=== PATIENT | female | born 1990 | race Hispanic/Latino ===

== ENCOUNTER 2016-10-03 18:41 | Emergency (ER) | payer MEDICAID ==
[~2016-10-03] VITALS: Ht 165.1 cm; Wt 84.0 kg
[~2016-10-03 18:41] MED LIST: ALBU8.5H2 INHALATION; Ascorbic Acid PO; DOCU-41 PO; FERR-74 PO; HYDR-4003 PO; IBUP800T28 PO; PREN-148 PO
[2016-10-03 18:54] VITALS: BP 125/83; PULSE 97; RESP 18; O2SAT 100
[2016-10-03 19:32] LABS: BASOPHILS % (AUTO) 0.1 % (0-3); EOSINOPHILS % (AUTO) 1.5 % (0-5); MONOCYTES % (AUTO) 4.8 % (4-12); Mean Corpuscular Hemoglobin 30.5 pg (27.0-35.0); Mean Corpuscular Volume 87.1 fL (81-100); NEUTROPHILS % (AUTO) 74.6 % (40-74); Platelet Count 274 bil/L (150-400)
--- NOTE | 2016-10-03 20:11 | ED.REPORT ---
HPI-Abd Pain F Under 40 Date of Service Oct 03, 2016 ED Provider: Margaret Goncalves DO Pt is a otherwise healthy 26 year old female who presents to the ED complaining of abdominal pain onset 3 days ago. She c/o associated lower extremity cramping. She denies vaginal bleeding. Pt reports that she presented to urgent care and was diagnosed with at 7 weeks, and she has been "taking Plan B". Nursing Notes Stated Complaint: ABDOMINAL PAIN + PREG Chief Complaint: Female Abdominal Pain Nursing Notes Reviewed: Yes Allergies: Coded Allergies: aspirin (Verified Allergy, Intermediate, rash, 04/28/15) Scheduled ([Ascorbic Acid]) 500 MG TABLET 500 MG PO BIDWM Albuterol HFA (Proair HFA) 8.5 Gm Hfa.aer.ad 2 PUFFS INHALATION Q4H Docusate Sodium (Colace) 100 Mg Capsule 100 MG PO BID Ferrous Sulfate (Feosol) 325 Mg Tablet 325 MG PO BIDWM Vit No.124/Iron/FA ( Vitamin Tablet) 27 Mg Iron-800 Mcg Tablet 1 EACH PO DAILY Scheduled PRN Hydrocodone-Acetaminophen 5-325 mg (Hydrocodone-Acetaminophen 5-325 mg) 1 Each Tablet 1-2 TABLET PO Q4H PRN PRN For Pain Ibuprofen (Ibuprofen) 800 Mg Tablet 800 MG PO TID PRN PRN For Pain General Time Seen by MD: 20:10 Chief Complaint Abdominal pain Hx Obtained From: Patient Arrived By: Walk-in Sudden in Onset?: No Onset Occurred: 3 days ago Symptom Duration: Since onset Location: : Diffuse Quality: Painful Severity: Current: Moderate Severity: Maximum: Moderate Recent Healthcare: Recent doctor visit Similar Sx Previous: No Past Medical History Past Medical History Asthma - 10/03/16 Past Surgical History denies Smoking History Never Smoker Social History Alcohol Use: "Social" Drug Use: Denies drug use Other Social History: Good social support Ambulatory Status Independent Review of Systems Constitutional: Denies: Fever Respiratory: Denies: Non-productive cough GI: Reports: Abdominal pain Female: Denies: Vaginal bleeding - abnl Musculoskeletal: Reports: Extremity pain Complete sys rev & neg: except as marked. Physical Exam Initial Vital Signs Vital Signs (First) Date Time Temp Pulse Resp B/P Pulse Ox O2 Delivery O2 Flow Rate FiO2 10/03/16 18:54 36.8 97 18 125/83 100 Room Air Initial VS: Reviewed Head / Eyes: Atraumatic, Normocephalic Neck: Supple, Full range of motion Extremities: Vascular intact, Neuro intact Skin: Warm, Dry, No cyanosis Neurologic: Alert, Oriented, Nonfocal Psychiatric: Mood/affect normal, Behavior normal General/Constitutional: Awake, Alert, Cooperative, Not toxic appearing Respiratory / Chest: Atraumatic, Breath sounds NL, Breath sounds = bilat Cardiovascular: Heart rate NL, Regular rhythm, Heart sounds NL Abdomen: Atraumatic, Soft, Non-tender Back: Atraumatic, Full range of motion Interpretation & Diagnostics Lab Results Interpretation Result Diagram: 10/03/16192410/03/16 192 Test 10/03/16 19:25 10/03/16 20:00 10/03/16 20:32 White Blood Count 10.4th/mm3 (3.8-10.1) Red Blood Count 4.49mil/mm3 (3.90-5.20) Hemoglobin 13.7g/dL (12.0-15.6) Hematocrit 39.1% (35.0-46.0) Mean Corpuscular Volume 87.1fL (81-100) Mean Corpuscular Hemoglobin 30.5pg (27.0-35.0) Mean Corpuscular Hemoglobin Concent 35.0% (32.0-37.0) Red Cell Distribution Width 13.2% (12.3-15.4) Platelet Count 274bil/L (150-400) Neutrophils (%) (Auto) 74.6% (40-74) Lymphocytes (%) (Auto) 18.8% (14-46) Monocytes (%) (Auto) 4.8% (4-12) Eosinophils (%) (Auto) 1.5% (0-5) Basophils (%) (Auto) 0.1% (0-3) Sodium Level 136mEq/L (134-144) Potassium Level 4.0mEq/L (3.5-5.2) Chloride Level 99mEq/L (97-108) Carbon Dioxide Level 23mmol/L (18-29) Blood Urea Nitrogen 6mg/dL (6-20) Creatinine 0.49mg/dL (0.57-1.00) Estimat Glomerular Filtration Rate 219mL/min (>59) Glucose Level 106mg/dL (60-99) Calcium Level 9.5mg/dL (8.5-10.1) Total Bilirubin 0.3mg/dL (0.0-1.2) Aspartate Amino Transf (AST/SGOT) 16U/L (0-50) Alanine Aminotransferase (ALT/SGPT) 16U/L (0-32) Alkaline Phosphatase 92U/L (25-150) Total Protein 7.3g/dL (6.4-8.4) Albumin 4.3g/dL (3.4-5.0) HCG Beta Subunit [id number]/mL Hold Zuniga Top Tube Received (Received) Hold Urine Received (Received) Urine Color Yellow (YELLOW) Urine Appearance Hazy (CLEAR,HAZY) Urine pH 5.5 (5.0-8.0) Urine Specific [place] <1.005 (1.003-1.035) Urine Protein Negativemg/dL (NEG,TRACE) Urine Glucose (UA) Negativemg/dL (NEGATIVE) Urine Ketones Negativemg/dL (NEGATIVE) Urine Occult Blood Negative (NEGATIVE) Urine Nitrite Negative (NEGATIVE) Urine Bilirubin Negative (NEGATIVE) Urine Urobilinogen Normalmg/dL (NORMAL) Urine Leukocyte Esterase Large (NEGATIVE) Urine RBC 0-2/hpf (0-2) Urine WBC 11-50/hpf (0-5) Urine Epithelial Cells Many/hpf (NONE-MOD) Urine Crystals None seen (NONE SEEN) Urine Bacteria Moderate/hpf (NONE-FEW) Urine Hyaline Casts None/lpf (NONE) Urine Granular Casts None seen (NONE SEEN) Urine Waxy Casts None seen (NONE SEEN) Urine Red Blood Cell Casts None seen (NONE SEEN) Urine White Blood Cell Casts None seen (NONE SEEN) Urine Mucus None seen (None Seen) Urine Trichomonas None seen (NONE SEEN) Urine Yeast None (NONE SEEN) Urinalysis Comment None Urine Culture Reflexed Indicated US Abdominal Aorta Viable uterine . Heart beat 106 bpm. No etopic . No free fluid. Right adnexal cystic lesion, good blood flow. Exam performed by Shaun. Re-Eval/Medical Decision Med Decision/Clinical Course Viable . Ectopic most likely ruled out. Ovarian cyst on the right where she is tender. Good blood supply. No hemoperitoneum. Rh+. Reassuring labs. Evidence of UTI. I will place her on Keflex 3 times a day for 7 days. Outpatient OB follow-up. Routine care. Source of Hx: Old records Re-Evaluation/Progress : Time of Eval: 21:46 )( Re-Eval Abdomen: Soft Re-Evaluation/Progress Note: Pt rechecked. Informed pt of plan for discharge. Pt understands and agrees with plan for discharge. F/U instructions and RTER warnings given. All questions addressed. Counseled Regarding: Diagnosis, Lab results, Need for follow-up, When/why to return to ED Discharge & Departure Primary Impression: Abdominal pain Abdominal location: unspecified location Qualified Code: R10.9 - Unspecified abdominal pain Additional Impressions: Ovarian cyst Laterality: unspecified laterality Qualified Code: N83.209 - Unspecified ovarian cyst, unspecified side Weeks of gestation: unspecified Qualified Code: Z33.1 - state, incidental UTI (urinary tract infection) Urinary tract infection type: site unspecified Hematuria presence: without hematuria Qualified Code: N39.0 - Urinary tract infection, site not specified Disposition: Home Discharge Condition All VS Reviewed: Yes Condition: Stable Patient Instructions: Abdominal Pain (ED), Ovarian Cyst (ED), (ED), Urinary Tract Infection in (ED) Additional Instructions: The ultrasound shows that you have a viable intrauterine as well as a right-sided ovarian cyst. During the ultrasound you seemed to be tender over this cyst. No signs of torsion to the cyst. You do have a bladder infection. You are Rh is positive. Take Keflex 3 times daily for 7 days. Call the referral cosmetic surgeon for follow-up. Return if any problems or any new or worrisome symptoms. Start taking a multivitamin for tested. Acetaminophen as directed for pain. Referrals: NOPCP (PCP) Caden Oliveira MD (Family) Husam Proctor MD Attestation Portions of this note were transcribed by Shahla Joseph. I, Dr. Robles personally performed the history, physical exam and medical decision-making; I reviewed and confirmed the accuracy of the information in the transcribed note. Signed by: Carol Hill, 10/03/16 and 21:50. copies to: Caden Oliveira MD; Husam Proctor MD, Todd P DO Oct 03, 2016 20:11 Shahla Marie Oct 03, 2016 20:51
[2016-10-03 21:11] LABS: APPEARANCE,URINE HAZY (CLEAR,HAZY); COLOR,URINE YELLOW (YELLOW); OCCULT BLOOD,URINE NEGATIVE (NEGATIVE); PH,URINE 5.5 (5.0-8.0)
[2016-10-03 21:12] LABS: UROBILINOGEN,URINE NORMAL (NORMAL)
[2016-10-03 21:54] VITALS: BP 107/74; PULSE 78; RESP 20; O2SAT 97
--- NOTE | 2016-10-03 21:55 | DRSVH ---
PROCEDURE: US OB<14 WKS+OB TRANSVAG INDICATIONS: and pelvic pain OUTSIDE/PRIOR DATING DATA: Last menstrual period (LMP): 08/25/2016. LMP-based estimated date of delivery (DHARMESH): 06/01/2017. First dating scan (date and location): This exam. Estimated date of delivery (DHARMESH) from first dating scan: 05/27/2017. TECHNIQUE: Real-time scanning was performed of the fetus and maternal pelvic organs, with image documentation. Endovaginal scanning was also performed to better visualize the fetus and maternal ovaries. COMPARISON: [facility] Ultrasound, US, US OB<14 WKS+OB TRANSVAG, 03/07/2015, 14:32. Non e. FINDINGS: Embryo: A single living intrauterine gestation is present. heart tone is present. OB-RN CLINICAL REVIEW Ultrasound Procedure Report Early Gestation [employer] Mean Gestational Sac Diameter: - Gestational Age (MGSD): - [place] Rump Length: 4.90 mm Gestational Age (CRL): 6 weeks, 2 days Summary Fetus Summary Heart Rate: 105 bpm Comments: A normal yolk sac is noted. No perigestational bleeds. Measurement variability in dating: +/- 4 weeks by LMP, +/- 7 days by mean sac diameter (use before 6 weeks gestation if crown-rump length not able to be measured), +/- 5 days by crown-rump length (up t o 8 weeks 6 days gestation), +/- 7 days by crown-rump length (from 9 weeks to 13 weeks 6 days gestati on). Maternal organs: Right ovary measures 4.3 x 3.0 x 2.4 cm. [place] a complex cyst in the right ovary measuring 1.8 cm, probably a corpus luteal cyst. Left ovary is not visualized. Limited images throug h the kidneys demonstrate no hydronephrosis. IMPRESSION: 1. A single living intrauterine gestation. The estimated gestational age is 6 weeks 2 days based on miranda ness ultrasound. Ultrasound DHARMESH 05/27/2017. 2. ? Corpu luteal cyst in right ovary. Left ovary is not visualized. Dictated by: Urmila Mejia M.D. on 10/03/2016 at 21:48 Transcribed by: JAIDA on 10/03/2016 at 21:54 Approved by: Urmila Mejia M.D. on 10/03/2016 at 22:33
== END 2016-10-03 21:55 | disposition home or self-care (01) ==
LOC: SED 18:41
DX: O23.41 Unspecified infection of urinary tract in pregnancy, first trimester (principal); N83.209 Unspecified ovarian cyst, unspecified side; Z3A.01 Less than 8 weeks gestation of pregnancy; Z79.82 Long term (current) use of aspirin

== ENCOUNTER 2016-11-18 13:38 | Emergency (ER) | payer MEDICAID ==
[~2016-11-18] VITALS: Ht 165.1 cm; Wt 86.4 kg
[2016-11-18 13:50] VITALS: BP 113/72; PULSE 90; RESP 16; O2SAT 98
--- NOTE | 2016-11-18 15:10 | ED.REPORT ---
HPI- Female Date of Service Nov 18, 2016 ED Provider: Mona Rodríguez MD The pt is a 26 y/o 3 months female () with a hx of asthma who presents to the ED complaining of numbness in her right inguinal region that radiates to her back, onset last night. These sx came on after she had a strong , fast, and sharp contraction last night. She also reports back muscle tightness for the last two weeks. She has been using hot and ice packs, which seems to improve her sx. The pt denies vaginal bleeding and dysuria. Nursing Notes Stated Complaint: ABD/BACK PAIN,3 MONTHS PG Chief Complaint: General Complaint Nursing Notes Reviewed: Yes Allergies: Coded Allergies: aspirin (Verified Allergy, Intermediate, rash, 04/28/15) Scheduled ([Ascorbic Acid]) 500 MG TABLET 500 MG PO BIDWM Albuterol HFA (Proair HFA) 8.5 Gm Hfa.aer.ad 2 PUFFS INHALATION Q4H Docusate Sodium (Colace) 100 Mg Capsule 100 MG PO BID Ferrous Sulfate (Feosol) 325 Mg Tablet 325 MG PO BIDWM Vit No.124/Iron/FA ( Vitamin Tablet) 27 Mg Iron-800 Mcg Tablet 1 EACH PO DAILY Scheduled PRN Hydrocodone-Acetaminophen 5-325 mg (Hydrocodone-Acetaminophen 5-325 mg) 1 Each Tablet 1-2 TABLET PO Q4H PRN PRN For Pain Ibuprofen (Ibuprofen) 800 Mg Tablet 800 MG PO TID PRN PRN For Pain oxyCODONE-Acetaminophen 5-325 mg (oxyCODONE-Acetaminophen 5-325 mg) 1 Each Tablet 1 TAB PO Q6H PRN PRN For Pain General Time Seen by MD: 14:50 Chief Complaint Inguinal pain right Hx Obtained From: Patient Arrived By: Walk-in Sudden in Onset?: Yes Onset Occurred: Yesterday Symptom Duration: Since onset Location: : Back Severity: Current: Mild Severity: Maximum: Mild Recent Healthcare: Recent doctor visit Similar Sx Previous: No Past Medical History Past Medical History Asthma - 10/03/16 Past Surgical History denies Smoking History Never Smoker Social History Alcohol Use: "Social" Drug Use: Denies drug use Other Social History: Good social support Ambulatory Status Independent Review of Systems Reports: back muscle tightness Female: Reports: , Denies: Dysuria, Vaginal bleeding - abnl Neurologic: Reports: Numbness (right inguinal region radiating to the back) Complete sys rev & neg: except as marked. Physical Exam Initial Vital Signs Vital Signs (First) Date Time Temp Pulse Resp B/P Pulse Ox O2 Delivery O2 Flow Rate FiO2 11/18/16 13:50 36.2 90 16 113/72 98 Room Air Initial VS: Reviewed Head / Eyes: Atraumatic, Normocephalic, PERRL Neck: Supple, Non-tender, Full range of motion Extremities: Vascular intact, Neuro intact, No swelling, No tenderness Female Genitourinary: Exam deferred General/Constitutional: Awake, Alert, Cooperative Respiratory / Chest: Atraumatic, Breath sounds NL, Breath sounds = bilat, No rales, No rhonchi, No wheezing Cardiovascular: Heart rate NL, Regular rhythm, Heart sounds NL, No gallop, No murmurs, No rubs Abdomen: Atraumatic, Soft, Non-tender, No guarding, No rebound, BS normoactive Back: Atraumatic, Inspection NL, Full range of motion Paraspinus muscle spasms Skin: Atraumatic, Color NL, No rash, Warm, Dry, Intact Neurologic: Oriented X3, Speech NL, No motor deficits Significant decreased cold sensation on the right side, just under the right breast to the right inguinal crest. Interpretation & Diagnostics Interpretation & Diagnostics: urine dip: +Leuk/tr pr/+ glucose/+ketones/- blood sent for culture PROCEDURE: US OB<14 WKS IMPRESSION: 1. Single living intrauterine gestation, with ultrasound derived estimated gestational age of 13 weeks 3 days, +/-7 days. As such, ultrasound derived dating is discordant from dating derived from the last menstrual period ( presumably from incorrect dates). 2. No sonographic explanation for abdominal pain. Dictated by: Antony Braxton M.D. on 11/18/2016 at 16:15 Approved by: Antony Braxton M.D. on 11/18/2016 at 16:20 Lab Results Interpretation Result Diagram: 11/18/16 1500 11/18/16 1500 Test 11/18/16 15:00 White Blood Count 8.2th/mm3 (3.8-10.1) Red Blood Count 4.24mil/mm3 (3.90-5.20) Hemoglobin 12.9g/dL (12.0-15.6) Hematocrit 36.9% (35.0-46.0) Mean Corpuscular Volume 87.0fL (81-100) Mean Corpuscular Hemoglobin 30.4pg (27.0-35.0) Mean Corpuscular Hemoglobin Concent 35.0% (32.0-37.0) Red Cell Distribution Width 12.9% (12.3-15.4) Platelet Count 243bil/L (150-400) Neutrophils (%) (Auto) 81.9% (40-74) Lymphocytes (%) (Auto) 12.3% (14-46) Monocytes (%) (Auto) 5.0% (4-12) Eosinophils (%) (Auto) 0.5% (0-5) Basophils (%) (Auto) 0.1% (0-3) Sodium Level 136mEq/L (134-144) Potassium Level 3.4mEq/L (3.5-5.2) Chloride Level 101mEq/L (97-108) Carbon Dioxide Level 22mmol/L (18-29) Blood Urea Nitrogen 7mg/dL (6-20) Creatinine 0.32mg/dL (0.57-1.00) Estimat Glomerular Filtration Rate 358mL/min (>59) Glucose Level 89mg/dL (60-99) Calcium Level 9.1mg/dL (8.5-10.1) Total Bilirubin 0.3mg/dL (0.0-1.2) Aspartate Amino Transf (AST/SGOT) 12U/L (0-50) Alanine Aminotransferase (ALT/SGPT) 11U/L (0-32) Alkaline Phosphatase 66U/L (25-150) Total Protein 6.6g/dL (6.4-8.4) Albumin 3.8g/dL (3.4-5.0) HCG Beta Subunit [id number]/mL Hold Zuniga Top Tube Received (Received) Re-Eval/Medical Decision Source of Hx: Old records Re-Evaluation/Progress : Time of Eval: 17:27 Re-Evaluation/Progress Note: Rechecked pt. Discussed lab results, imaging results, diagnosis and plan to discharge. Pt understands and agrees with the plan. F/U instruction and RTER warning given. All questions addressed. Counseled Regarding: Diagnosis, Lab results, Need for follow-up, When/why to return to ED Discharge & Departure Impression: Primary Impression: Back pain Additional Impression: Intrauterine Disposition: Home Discharge Condition All VS Reviewed: Yes Condition: Stable Additional Instructions: Thank you for entrusting us with your care today. Your ultrasound was reassuring. It puts your due date at 05/23. You are likely to hurt more tomorrow- it is always worse the next 24-48 hours after you pull a muscle. You can take Ibuprofen through December. By January it should be avoided until after you deliver your baby. the numbness you are feeling is from nerves being pinched from spasming muscles. It is NOT life threatening and is NOT going to hurt your baby. The safest way to help with this is pain is to alternate between ice and heat packs. For severe pain you can take one Percocet as prescribed if necessary - remember that all medication can affect your baby and should be used only in significant instanstances. I recommend buying a "belly belt". With back issues this early in , you are likley going to have issues off and on for months and this may help your symptoms. Follow up with your PCP for further evaluation. Return to the emergency department in case of new or worsening symptoms. I hope the rest of your goes well! [facility] Scribe Attestation Portions of this note were transcribed by Nagi Koch. I,, personally performed the history, physical exam and medical decision-making;I reviewed and confirmed the accuracy of the information in the transcribed note. Signed by Carol Bernstein. 11/18/16 copies to: [facility] Shawna L MD Nov 18, 2016 15:10 Nagi Koch Nov 18, 2016 15:58
[2016-11-18 15:16] LABS: BASOPHILS % (AUTO) 0.1 % (0-3); EOSINOPHILS % (AUTO) 0.5 % (0-5); Mean Corpuscular Hemoglobin 30.4 pg (27.0-35.0); NEUTROPHILS % (AUTO) 81.9 % (40-74); Platelet Count 243 bil/L (150-400)
[2016-11-18 15:58] VITALS: BP 123/73; PULSE 92; RESP 14; O2SAT 98
--- NOTE | 2016-11-18 16:22 | DRSVH ---
PROCEDURE: US OB<14 WKS INDICATIONS: 26 year-old female with abdominal pain. OUTSIDE/PRIOR DATING DATA: Last menstrual period (LMP): August 25, 2016. LMP-based estimated date of delivery (DHARMESH): June 01, 2017. First dating scan (date and location): Present study. Estimated date of delivery (DHARMESH) from first dating scan: May 23, 2017. TECHNIQUE: Real-time scanning was performed of the fetus and maternal pelvic organs, with image documentation. COMPARISON: None. FINDINGS: Embryo: Single living intrauterine gestation demonstrates normal heart rate of 163 beats per mi nute. [place]-rump length of 7.4 cm corresponds with 13 weeks 3 days estimated gestational age. Amnioti c fluid is qualitatively normal in amount. Placenta is posterior, with no evidence for previa. Measurement variability in dating: +/- 4 weeks by LMP, +/- 7 days by mean sac diameter (use before 6 weeks gestation if crown-rump length not able to be measured), +/- 5 days by crown-rump length (up t o 8 weeks 6 days gestation), +/- 7 days by crown-rump length (up to 13 weeks 6 days gestation). Maternal organs: Ovaries are normal in size IMPRESSION: 1. Single living intrauterine gestation, with ultrasound derived estimated gestational age of 13 week s 3 days, +/-7 days. As such, ultrasound derived dating is discordant from dating derived from the menstrual period (presumably from incorrect dates). 2. No sonographic explanation for abdominal pain. Dictated by: Antony Braxton M.D. on 11/18/2016 at 16:15 Approved by: Antony Braxton M.D. on 11/18/2016 at 16:20
[2016-11-18] MEDS ORDERED: Lidocaine 1%-Epi 1:100,000 20 mL Inj ONE (17:04)
[2016-11-18] MEDS ORDERED: oxyCODONE-Acetamin 5-325 mg Tablet PO ONE (18:00)
[2016-11-18] MEDS ORDERED: OXYC1TAB24 PO (18:19)
[2016-11-18 18:26] VITALS: BP 123/73; PULSE 92; RESP 14; O2SAT 98
== END 2016-11-18 18:27 | disposition home or self-care (01) ==
LOC: SED 13:38
DX: O26.891 Other specified pregnancy related conditions, first trimester (principal); M54.9 Dorsalgia, unspecified; Z3A.12 12 weeks gestation of pregnancy; J45.909 Unspecified asthma, uncomplicated; Z88.6 Allergy status to analgesic agent